=== PATIENT | female | born 1985 | race Two or more races ===

== ENCOUNTER 2018-08-17 10:58 | Outpatient (CLI) | END 2018-08-17 14:20 | disposition home or self-care (01) ==

== ENCOUNTER 2018-08-18 22:31 | Inpatient (IN) | END 2018-08-19 16:08 | disposition home or self-care (01) | DRG 833 ==

== ENCOUNTER 2018-09-03 17:15 | Inpatient (IN) | END 2018-09-05 14:00 | disposition home or self-care (01) | DRG 807 ==